=== PATIENT | male | born 1995 | race Caucasian/White ===

== ENCOUNTER 2016-11-07 11:53 | Emergency (ER) | payer OTHER ==
[~2016-11-07] VITALS: Ht 193 cm; Wt 92.0 kg
[~2016-11-07 11:53] MED LIST: NAPR40TA PO
[2016-11-07 11:54] VITALS: BP 124/70; PULSE 70; RESP 15; TEMP 98.1; O2SAT 99
[2016-11-07] MEDS ORDERED: TETANUS/DIPHTHERIA TOXOID ADULT 0.5 ML VIAL IM ONE (12:15)
--- NOTE | 2016-11-07 12:17 | PD ---
HPI Chief Complaint: Injury Time Seen by Provider: 12:14 Travel History International Travel<30 days: No Contact w/Intl Traveler<30days: No Traveled to known affect area: No History of Present Illness HPI 21-year-old male with history of autism, bipolar disorder and ADHD presents to the emergency department for evaluation of right hand injury. Patient states that last night he punched a window and he has had pain and swelling over his fifth metacarpal bone since this injury. He also has a few abrasions on the hand. States that he punched a window because he was angry. He denies any numbness or tingling, weakness, fever, chills, nausea, vomiting. Denies any previous injury or trauma to his hand. No other complaints. PFSH Past Medical History ADHD: Yes Anxiety: No (pt denies) Depression: No (pt denies) Cancer: No Cardiovascular Problems: No Diabetes: No Diminished Hearing: No Endocrine: No Genitourinary: No Immune Disorder: No Musculoskeletal: No Neurologic: No Psychiatric: Yes (Bipolar, ADHD, autism per pt) Reproductive: No Respiratory: No Immunizations Current: Yes Migraines: No Seizures: Yes Thyroid Disease: No Ulcer: No Past Surgical History Appendectomy: No Cholecystectomy: No Social History Alcohol Use: Yes Tobacco Use: Yes Substance Use: No (pt denies) Allergies-Medications (Allergen,Severity, Reaction): Coded Allergies: Geodon (Verified Allergy, Severe, 01/27/16) mother states lock jaw *MDRO Multi-Drug Resistant Organism (Unverified Allergy, Unknown, 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 SKIN: Warm and dry. HEAD: Normocephalic and atraumatic. EYES: No injection, drainage, or hyphema noted. PERRLA. EOMI. ENT: No nasal drainage noted. Oropharynx is clear. NECK: Supple and the trachea is midline. CARDIOVASCULAR: Regular rate and rhythm. RESPIRATORY: Breath sounds are equal bilaterally with no accessory muscle use, wheezing, rhonchi, or crackles. EXTREMITY: Right hand with swelling and tenderness to palpation over the fifth metacarpal. Full range of motion in all fingers and joints with the exception of limited range of motion in the fifth MCP joint due to pain. Distal extremity neurovascularly intact with intact two point discrimination. Radial pulses 2+ bilaterally. NEUROLOGICAL: Awake, alert, and oriented. Normal speech and gait. Cranial nerves are grossly intact. Data Data Last Documented VS Vital Signs Date Time Temp Pulse Resp B/P Pulse Ox O2 Delivery O2 Flow Rate FiO2 11/07/16 11:54 98.1 70 15 124/70 99 Orders Hand, Complete ([id number]) (11/07/16 12:13) Ice/Cold Pack (11/07/16 12:13) Tetanus/Diphtheria Tox Adult (Tetanus/Di (11/07/16 12:15) Lidocaine 1% Inj (50 Ml) (Xylocaine 1% I (11/07/16 13:15) Splint Or Brace Apply/Monitor (11/07/16 13:03) Hand, Complete ([id number]) (11/07/16 13:42) Fiberglass Splint Forearm Adul (11/07/16 ) MDM Medical Decision Making Medical Screen Exam Complete: Yes Emergency Medical Condition: Yes Differential Diagnosis Fracture versus contusion versus sprain Narrative Course 21-year-old male presents to the emergency department for evaluation of right hand pain status post punching a window. Patient is afebrile, vital signs are stable. The patient's right upper extremity is neurovascularly intact. He does have some swelling and deformity along the fifth metacarpal. Likely a boxer's fracture. X-ray imaging has been ordered and is pending. X-ray imaging shows a slightly displaced and angulated boxer's fracture. I did inject lidocaine 1% into the area of the fracture and attempt reduction with slight improvement noted on post reduction x-ray. Patient's hand is placed in a ulnar gutter splint. He is instructed to follow-up with a hand specialist. Patient verbalizes understanding and agreement with treatment plan. I discussed the case with my attending physician Dr. Bruce who is aware of the patients history, physical examination findings, and treatment plan. Procedures Procedure Narrative HEMATOMA BLOCK w/ Reduction: Area was prepped sterilely. 1% lidocaine was injected into the area of the hematoma and fracture. Reduction of fracture was attempted by me. Ulnar gutter splint was applied. Patient tolerated the procedure well. Diagnosis Primary Impression: Closed right hand fracture Qualified Code: S62.91XA - Closed right hand fracture, initial encounter Referrals: Hand Surgeon Patient Instructions: General Instructions, Hand Fracture (ED) Additional Instructions: Splint. Keep hand elevated. Apply ice for 20 minutes on, 20 minutes off. Take medication as prescribed with food and a full glass of water. Follow-up with a hand specialist. Return to the ED for any acute worsening of symptoms. Med/Other Pt SpecificInfo: Prescription(s) given Scripts Naproxen 500 Mg [id number] Mg PO BID 7 Days Ref 0 Prov:Flaco Bruce MD 11/07/16 Disposition: 01 DISCHARGE HOME Condition: Stable Beatrice Lomas Nov 07, 2016 12:17
--- NOTE | 2016-11-07 12:43 | RADRPT ---
EXAM DATE/TIME: 11/07/2016 12:32 [facility] COMPARISON: No previous studies available for comparison. INDICATIONS : Right hand pain after patient punched window last night MEDICAL HISTORY : None. SURGICAL HISTORY : None. ENCOUNTER: Initial ACUITY: 1 day PAIN SCORE: 10/10 LOCATION: Right medial hand FINDINGS: Examination reveals a minimally displaced and angulated fracture of the distal right fifth metacarpal , transversely oriented an approximately 2 cm proximal to the metacarpophalangeal joint with slight a pex dorsal and ulnar angulation at fracture site. The hand appears otherwise intact. CONCLUSION: Slightly displaced and angulated boxer's fracture Phi Reilly MD on November 07, 2016 at 12:41 Board Certified Radiologist. This report was verified electronically.
[2016-11-07] MEDS ORDERED: LIDOCAINE HCL 1% 50 ML VIAL INFIL ONE (13:15)
[2016-11-07] MEDS ORDERED: NAPR500T PO (14:09)
--- NOTE | 2016-11-07 14:13 | RADRPT ---
EXAM DATE/TIME: 11/07/2016 13:45 [facility] COMPARISON: HAND RIGHT COMPLETE ([id number]), November 07, 2016, 12:32. INDICATIONS : Post-Reduction, Right Hand. MEDICAL HISTORY : None. SURGICAL HISTORY : None. ENCOUNTER: Subsequent ACUITY: 1 day PAIN SCORE: 5/10 LOCATION: Right Hand. FINDINGS: There is a slight interval reduction in decrease in angulation of a right hand boxer's fracture. Spli nt material is applied. CONCLUSION: Slight interval reduction Phi Reilly MD on November 07, 2016 at 14:11 Board Certified Radiologist. This report was verified electronically.
== END 2016-11-07 14:25 | disposition home or self-care (01) ==
LOC: NEPB 11:53
DX: S62.91XA Unspecified fracture of right hand, initial encounter for closed fracture (principal); W22.8XXA Striking against or struck by other objects, initial encounter; Z72.0 Tobacco use; Z23 Encounter for immunization
CPT/HCPCS: 26605; 73130; 90471; 90714